=== PATIENT | female | born 1970 | race Hispanic/Latino ===

== ENCOUNTER 2017-06-07 08:15 | Emergency (ER) | payer MEDICAID, SELFPAY ==
--- NOTE | 2017-06-07 09:01 | RAD ---
PA AND LATERAL CHEST X-RAY: 06/07/2017 HISTORY: Chest injury. The patient tripped and fell and hit left side on bench. Reports left-sided chest pa in with breathing. Pressure and numbness sensation at the left ribs. COMPARISON: 10/22/2004 FINDINGS: Cardiac silhouette and pulmonary vasculature are within normal limits. The lungs remain clear. The re is no pneumothorax or pleural effusion seen. No definite rib fracture is seen. There has been n o interval change from the prior study. IMPRESSION: No acute cardiopulmonary process. POS: [facility]
--- NOTE | 2017-06-07 09:05 | RAD ---
THREE VIEWS LEFT RIBS: 06/07/2017 HISTORY: The patient tripped and fell and hit left side on a bench. The patient reports left-sided chest judith n when breathing. The patient also states the pain is a pressure sensation and numbness to the left ribs. FINDINGS: No left-sided rib fracture is visualized. The left lung is clear without evidence of a pneumothorax or pleural effusion. Calcifications overlie the left axillary region. IMPRESSION: No left-sided rib fracture is seen. POS: [facility]
== END 2017-06-07 09:24 | disposition home or self-care (01) ==
LOC: ERS 08:15
DX: S20.212A Contusion of left front wall of thorax, initial encounter (principal); W01.190A Fall on same level from slipping, tripping and stumbling with subsequent striking against furniture, initial encounter
CPT/HCPCS: 71020